=== PATIENT | female | born 1940 ===

== ENCOUNTER 2023-09-15 13:40 | Outpatient (AMB) | payer OTHER, SELFPAY ==
--- NOTE | 2023-09-15 13:47 | A.OFFVIS_ITS ---
Intake Vital Signs 09/15/23 13:48 Height 5 ft 5 in Weight 194 lb 4 oz BMI 32.3 BP 120/72 Blood Pressure Location Rt brachial Position Sitting Respiration 17 Pulse 90 Pulse Source Pulse Oximeter Pulse Oximetry (%) 96 Oxygen Delivery Method Room Air Intake Visit Reasons: [employer]: Insomnia - LVM Intake Note: Pt presents to the office for new patient evaluation for insomnia. Pt states for about 20 years she has been battling with sleep disturbances. SHe has trouble falling and staying asleep. Allergies No Known Allergies Allergy (Verified 09/15/23 13:54) HPI HPI Comments History of Present Illness Details 82 y/o female patient presents for new i n-person visit for sleep consultation. Pt reports difficulty staying sleep, nocturia and non refreshing sleep. She states that wakes up frequently almost every 2-3 hrs to go to bathroom. She had been having difficulty sleeping about 20 years. She feels very tired and lack of energy. She tried melatonin, mirtazapine, trazodone, xanax, lunesta and ambien but they caused hallucination and REM behavior. She woke up in the middle of night and moved furniture, but can't remember what she did. No more REM behavior after discontinue the medications. Sleep questionnaire: Have you ever been diagnosed with a sleep disorder? Yes, insomnia. Have you ever had a sleep study in the past? No. Have you ever been treated for a sleep disorder? Yes. Do you take medications for a sleep disorder? Melatonin, Xanax, Lunesta, etc but it caused hallucination and REM behavior. Do you snore? Yes. Do you wake up gasping at night? No. Do you have episodes of apneas? No. If yes, are they witnessed? No, sleeps alone. Do you have episodes of nocturnal chest pain or dyspnea? No. Do you have difficulty initiating sleep? Yes. Do you have difficulty maintaining sleep? Yes. Do you wake up tired? Yes. Do you have headaches upon awakening? No. Do you wake up with dry mouth or throat? Yes. Do you have GERD? No. Do you have nocturia? Yes, 3-4 times at night. Do you have nocturnal leg cramps? Yes, sometimes. Do you have symptoms of restless legs? No. Do you act out your dreams? No. Sleep hygiene questionnaire: What is your usual sleep routine? Usual bedtime is at 10 pm; Usual wake up time is at 6-7 am. Do you take naps? No. Is your sleep environment cool, dark, and quiet? Yes. Do you exercise? 3 days week, strength training. Do you take caffeine or other stimulants? 1 cup of coffee in the morning. Do you use electronics in bed? Yes. What is your work schedule? N/A. Hypersomnolence questionnaire: Do you have daytime tiredness or fatigue? Yes. Do you easily fall asleep when inactive? Yes. Have you ever had episodes of sudden weakness? No. Have you ever had episodes of sudden weakness associated with strong emotions? No. [facility] Surgical History (Updated 09/15/23 @ 13:59 by Georgina Mcelroy CMA) History of cholecystectomy History of appendectomy H/O section H/O rotator cuff surgery Total knee replacement status History of lumpectomy of left breast Family History Father No problems noted. Mother No problems noted. Social History (Updated 09/15/23 @ 14:02 by Georgina Mcelroy CMA) Household Members: None Housing: House Alcohol intake: current Patient Tobacco Use Status: Never used Tobacco Review of Systems Const All systems reviewed & are unremarkable except as noted in HPI and below ENT Reports Normal hearing present Neuro Reports Normal hearing present Physical Exam Vital Signs: Last Vital Signs Pulse 90 09/15/23 13:48 Resp 17 09/15/23 13:48 BP 120/72 09/15/23 13:48 Pulse Ox 96 09/15/23 13:48 Oxygen Delivery Method Room Air 09/15/23 13:48 BMI result Body Mass Index 32.3 Const General: cooperative Nutritional Appearance: obese Orientation/consciousness: patient oriented x3 Limitations: ambulation with cane Neck Neck: Yes full ROM and Yes supple Resp Effort & Inspection: normal respiratory effort and able to speak in complete sentences Neuro General: patient oriented x3 Cranial nerves: Yes Bilaterally intact EOM present, Yes Normal facial strength present, Yes Midline tongue present, Yes Symmetric palate elevation present, Yes Normal hearing present, Yes Ability to bilaterally rotate head present and Yes Ability to bilaterally elevate shoulders present Cognition (Neuro): normal cognition Motor exam (neuro): 5/5 motor strength present throughout, Pronator motor function not present and no tremor noted Psych Appearance: grossly normal Mental Status: mental status grossly normal Speech and movement: Normal speech and movement present Attitude: cooperative Assessment & Plan Assessment & Plan (1) Difficulty sleeping: Code(s): G47.9 - Sleep disorder, unspecified (2) Daytime sleepiness: Code(s): R40.0 - Somnolence (3) Snoring: Code(s): R06.83 - Snoring Plan Pt is advised to undergo in lab sleep study to assess for sleep apnea, or PLMD. Will f/u with pt after study to discuss results and appropriate treatment options. Sleep hygiene education provided. Limit electronic use before bedtime. May try magnesium 400 mg qHS. Pt to call with any worsening concerns or questions. Orders: Orders RT PSG in-lab sleep study Today G47.9 - Sleep disorder, unspecified, R06.83 - Snoring, R40.0 - Somnolence Medications: New magnesium oxide 400 mg PO DAILY 30 days 30 tabs 5RF Coding Level of Care Code New Pt Level 3 (57665) Diagnoses Difficulty sleeping G47.9 Daytime sleepiness R40.0 Snoring R06.83
[2023-09-15 13:48] VITALS: BP 120/72; PULSE 90; RESP 17; O2SAT 96; BMI 32.3
== END 2023-09-15 14:33 | disposition home or self-care (01) ==
PROVIDERS: PCP Family Medicine; Visit Provider Nurse Practitioner Family
DX: G47.9 Sleep disorder, unspecified (principal); R40.0 Somnolence; R06.83 Snoring
CPT/HCPCS: 99203

== ENCOUNTER → 2023-09-15 13:40 | Outpatient (BNVA) | payer OTHER, SELFPAY | PROVIDERS: PCP Family Medicine; Visit Provider Nurse Practitioner Family ==

== ENCOUNTER → 2023-10-05 19:30 | Outpatient (REF) | payer OTHER, SELFPAY | LOC: HO.SL 19:30 | PROVIDERS: PCP Family Medicine; Visit Provider Nurse Practitioner Family | DX: G47.9 Sleep disorder, unspecified (principal); R40.0 Somnolence; R06.83 Snoring | CPT/HCPCS: 95810 ==

== ENCOUNTER → 2023-10-05 21:16 | Outpatient (BNV) | payer OTHER, SELFPAY | PROVIDERS: PCP Family Medicine; Visit Provider Psychiatry & Neurology Neurology | DX: G47.33 Obstructive sleep apnea (adult) (pediatric) (principal); G47.61 Periodic limb movement disorder | CPT/HCPCS: 95810 ==